=== PATIENT | male | born 1980 | race Caucasian/White ===

== ENCOUNTER 2021-05-19 00:09 | Emergency (ER) | payer OTHER, SELFPAY ==
--- NOTE | ~2021-05-19 | XR_ITS ---
EXAMINATION: XR CHEST CLINICAL INFORMATION: Shortness of breath with history of PTX COMPARISON: Single view chest 10/10/2019 TECHNIQUE: 2 views of the chest were obtained. FINDINGS: No significant abnormality is noted involving the heart, lungs, mediastinum, bony thorax or soft tissues. There is no pneumothorax detected. XR/XR chest 2V IMPRESSION: Unremarkable examination.
[2021-05-19 00:13] VITALS: BP 118/74; BP 120/50; PULSE 79; PULSE 82; RESP 16; TEMP 37.3; O2SAT 97; BMI 25.0
--- NOTE | 2021-05-19 00:23 | ECG_ITS ---
Test Reason : anxiety Blood Pressure : / mmHG Vent. Rate : 074 BPM Atrial Rate : 074 BPM P-R Int : 182 ms QRS Dur : 100 ms QT Int : 358 ms P-R-T Axes : 065 096 066 degrees QTc Int : 397 ms Normal sinus rhythm Rightward axis Borderline ECG When compared with ECG of 10-OCT-2019 01:36, No significant change was found Referred By: Sujata Jarrett Electronically Signed By:Calvin Roque
--- NOTE | 2021-05-19 00:30 | ED.SOB ---
HPI - SOB/Dyspnea General Chief Complaint: Anxiety Stated Complaint: Anxiety Time Seen by Provider: 05/19/21 00:16 Source: patient Mode of arrival: EMS History of Present Illness HPI Narrative: 41-year-old male with history of pneumothorax and asthma is brought in by EMS after his friend called due to acute onset of shortness of breath and left-sided chest discomfort that is worse with deep inspiration and reproducible in nature. Patient denies any fever, chills, but has had cough. Patient states he has consumed alcohol as well as smoked weed prior to arrival. Related Data Previous Rx's Medication Instructions Recorded prednisone 50 mg tablet 50 mg PO DAILY 4 Days #4 tab 05/19/21 Allergies Allergy/AdvReac Type Severity Reaction Status Date / Time acetaminophen [From TYLENOL] Allergy Severe SWELLING Unverified 12/01/19 15:09 shellfish derived Allergy Severe ANAPHYLAXIS Unverified 12/01/19 15:09 [SHELLFISH DERIVED] aspirin Allergy Unknown UNKNOWN Unverified 12/01/19 15:09 shellfish Allergy Unknown Uncoded 04/07/18 00:00 Review of Systems Review of Systems: Pertinent positives and negatives as stated in HPI 10 point review of systems is otherwise negative. [facility] Past Medical History Source: nursing notes reviewed Social History Social History Advance Directives: No Advance Directives Information Provided: No Physical Exam Vital Signs: Vital Signs: Last Vital Signs Temp 99.1 F 05/19/21 00:13 Pulse 80 05/19/21 01:10 Resp 18 05/19/21 01:10 BP 118/74 05/19/21 00:13 Pulse Ox 97 05/19/21 00:13 BMI result Body Mass Index 25.0 VITAL SIGNS: Reviewed. GENERAL: Poor hygiene, in mild distress, smells like alcohol HEAD: Normocephalic/atraumatic EYES: PERRLA, EOMI OROPHARYNX: no oral lesions noted, posterior pharynx clear LUNGS: Good air entry bilaterally but with noted discomfort, noted expiratory wheeze. SpO2<97> CARDIOVASCULAR: Regular rate and rhythm without noted murmurs, no JVD ABDOMEN: Soft, non-tender, non-distended with bowel sounds. MUSCULOSKELETAL: No tenderness, deformities, or effusions noted on gross inspection. EXTREMITIES: No cyanosis, clubbing or edema. SKIN: Inspection of the skin reveals no rashes, ulcerations, jaundice, pallor, or petechiae. NEUROLOGIC: Alert and oriented x 4. Strength and sensation to light touch were grossly intact x 4. Course Course Course Narrative: 41-year-old male with history and clinical presentation suggestive of possible but less likely pneumothorax after review of notes describe sclerosing treatments and the possibility pneumonia or asthma. Review of all investigations most consistent with mild asthma exacerbation without hypoxia, patient received hour long albuterol treatment as well as oral prednisone with significant improvement in symptoms. He was otherwise discharged home in stable condition. MDM - SOB/Dyspnea Lab Data Result diagrams: 05/19/21 01:08 05/19/21 01:08 Labs: Lab Results 05/19/21 05/19/21 Range/Units 01:08 01:08 WBC 6.3 (4.8-10.8) X10*3/uL RBC 4.74 (4.60-5.80) X10*6/uL Hgb 15.1 (14.0-18.0) g/dl Hct 44.6 (42.0-52.0) % MCV 94.1 (80.0-98.0) fL MCH 31.9 (27.0-33.0) pg MCHC 33.9 (31.0-36.0) g/dl RDW 13.6 (11.0-16.0) % Plt Count 222 (160-400) X10*3/uL MPV 8.6 L (9.4-12.4) fL Immature Gran % (Auto) 0.5 H (0.0-0.4) % Neut % (Auto) 45.2 (45-73) % Lymph % (Auto) 40.5 H (20-40) % [place] % (Auto) 9.0 (2-11) % Eos % (Auto) 4.2 H (0-4) % Baso % (Auto) 0.6 (0-2) % Lymph # (Auto) 2.5 (1.2-4.9) X10*3/uL [place] # (Auto) 0.6 (0.1-1.2) X10*3/uL Eos # (Auto) 0.3 (0.0-0.4) X10*3/uL Baso # (Auto) 0.0 (0.0-0.2) X10*3/uL Abs Immat Gran (auto) 0.03 (0.00-0.03) X10*3/uL Absolute Neuts (auto) 2.8 (2.0-8.3) x10*3/uL Absolute Nucleated RBC 0.000 (0.0-0.012) X10*3/uL Nucleated RBC % (auto) 0.0 (0.0-0.2) /100WBC Sodium 145 (135-145) mmol/L Potassium 3.9 (3.3-5.1) mmol/L Chloride 106 (96-108) mmol/L Carbon Dioxide 28 (22-29) mmol/L Anion Gap 15 (12-20) BUN 9 (9-16) mg/dL Creatinine 0.85 (0.5-1.4) mg/dL Estim Creat Clear Calc 129.2 Estimated GFR > 60 Random Glucose 88 (60-115) mg/dL Calcium 9.2 (8.4-10.2) mg/dL Total Bilirubin 0.2 (0.0-1.0) mg/dL AST 25 (5-37) U/L ALT 19 (0-40) U/L Alkaline Phosphatase 57 (39-117) U/L Total Protein 7.1 (6.5-8.0) g/dL Albumin 4.3 (3.5-5.0) g/dL ECG Data Attestation: I personally reviewed and interpreted this ECG as follows: Prior ECG tracings: available for review Interpretation: Normal sinus rhythm, HR-74, no STEMI, SC/QRS/QTC are within normal limits. Discharge Plan Discharge Clinical Impression: Asthma exacerbation Patient Disposition: Home, Self-Care Instructions: Asthma (ED) Additional Instructions: Follow-up with your primary care provider in the next 2-3 days. Return to the ER for worsening symptoms. Prescriptions: New prednisone 50 mg tablet 50 mg PO DAILY 4 Days Qty: 4 0RF
[2021-05-19 01:10] VITALS: PULSE 80; RESP 18; O2SAT 98
[2021-05-19] MEDS: Albuterol Sulfate (0.083%) 2.5 MG/3 ML VIAL.NEB 10 MG INHALE (01:10)
[2021-05-19 01:12] LABS: MANUAL DIFF FLAG NO
[2021-05-19 01:13] LABS: Basophils Percent Auto 0.6 % (0-2); Eosinophils Absolute Auto 0.3 X10*3/uL (0.0-0.4); Eosinophils Percent Auto 4.2 % (0-4); Hematocrit 44.6 % (42.0-52.0); Hemoglobin 15.1 g/dl (14.0-18.0); Imm Gran Abs Auto 0.03 X10*3/uL (0.00-0.03); Imm Gran Pct Auto 0.5 % (0.0-0.4); Lymphocytes Absolute Auto 2.5 X10*3/uL (1.2-4.9); Lymphocytes Percent Auto 40.5 % (20-40); Mean Corpuscular HGB Conc 33.9 g/dl (31.0-36.0); Mean Corpuscular Hemoglobin 31.9 pg (27.0-33.0); Mean Corpuscular Volume 94.1 fL (80.0-98.0); Mean Platelet Volume 8.6 fL (9.4-12.4); Monocytes Absolute Auto 0.6 X10*3/uL (0.1-1.2); Neutrophils Absolute Auto 2.8 x10*3/uL (2.0-8.3); Neutrophils Percent Auto 45.2 % (45-73); Platelet Count 222 X10*3/uL (160-400); Red Blood Count 4.74 X10*6/uL (4.60-5.80); Red Cell Distribution Width 13.6 % (11.0-16.0); White Blood Count 6.3 X10*3/uL (4.8-10.8)
[2021-05-19 01:28] LABS: Alanine Aminotransferase 19 U/L (0-40); Albumin Level 4.3 g/dL (3.5-5.0); Alkaline Phosphatase 57 U/L (39-117); Anion Gap 15 (12-20); Aspartate Amino Transferase 25 U/L (5-37); Bilirubin Total 0.2 mg/dL (0.0-1.0); Blood Urea Nitrogen 9 mg/dL (9-16); Calcium 9.2 mg/dL (8.4-10.2); Carbon Dioxide 28 mmol/L (22-29); Chloride 106 mmol/L (96-108); Creatinine Clr Calc Pharmacy 129.2; Estimated Glomerular Filt Rate > 60; Glucose Random 88 mg/dL (60-115); Potassium 3.9 mmol/L (3.3-5.1); Sodium 145 mmol/L (135-145); Total Protein 7.1 g/dL (6.5-8.0)
[2021-05-19] MEDS: predniSONE 10 MG TABLET 50 MG PO (01:44)
[2021-05-19 02:00] VITALS: BP 119/73; PULSE 92; RESP 14; TEMP 36.7; O2SAT 98
== END 2021-05-19 02:15 | disposition home or self-care (01) ==
PROVIDERS: Emergency Provider Student in an Organized Health Care Education/Training Program
DX: J45.901 Unspecified asthma with (acute) exacerbation (principal); F41.1 Generalized anxiety disorder; R06.02 Shortness of breath; R07.9 Chest pain, unspecified; Z79.899 Other long term (current) drug therapy
CPT/HCPCS: 36415; 71046; 80053; 85025; 93005; 94640; 94644; 99284

== ENCOUNTER 2021-10-18 02:17 | Emergency (ER) | payer OTHER, SELFPAY ==
--- NOTE | ~2021-10-18 | XR_ITS ---
EXAMINATION: XR CHEST CLINICAL INFORMATION: Back pain COMPARISON: 05/19/2021 TECHNIQUE: 2 views of the chest were obtained. FINDINGS: No significant abnormality is noted involving the heart, lungs, mediastinum, bony thorax or soft tissues. XR/XR chest 2V IMPRESSION: Unremarkable examination.
[2021-10-18 02:33] VITALS: BP 111/78; BP 146/90; PULSE 86; PULSE 88; RESP 16; TEMP 37.2; O2SAT 94; BMI 23.1
[2021-10-18 04:03] VITALS: BP 120/76; PULSE 84; RESP 17; TEMP 37.2; O2SAT 96
--- NOTE | 2021-10-18 04:20 | ECG_ITS ---
Test Reason : BACK PAIN Blood Pressure : / mmHG Vent. Rate : 077 BPM Atrial Rate : 077 BPM P-R Int : 178 ms QRS Dur : 102 ms QT Int : 384 ms P-R-T Axes : 078 099 066 degrees QTc Int : 434 ms Normal sinus rhythm Possible Left atrial enlargement Rightward axis Borderline ECG When compared with ECG of 19-MAY-2021 00:53, No significant change was found Referred By: Millicent El Electronically Signed By:CHARLES GODWIN MD
--- NOTE | 2021-10-18 04:21 | ED_ITS ---
HPI - Back Pain/Injury General Chief Complaint: Back Pain/Injury Stated Complaint: back pain Time Seen by Provider: 10/18/21 04:20 History of Present Illness HPI Narrative: 41-year-old male vaccinated for COVID positive history of smoking presents today with coughing pain in the back worse with coughing. Symptoms been ongoing for about 2 weeks. Patient denies any recent weight loss. Patient is from home. No history of diabetes, hypertension, mi. pain is worse with certain position. He was still able to play basketball. No nausea no vomiting. No diaphoresis. No shortness of breath associated with this pain Related Data Previous Rx's Medication Instructions Recorded prednisone 50 mg tablet 50 mg PO DAILY 4 days #4 tabs 05/19/21 azithromycin 250 mg tablet See Rx Instructions PO .COMPLEX 10/18/21 upper resp infection #6 tabs Allergies Allergy/AdvReac Type Severity Reaction Status Date / Time acetaminophen [From TYLENOL] Allergy Severe SWELLING Unverified 12/01/19 15:09 shellfish derived Allergy Severe ANAPHYLAXIS Unverified 12/01/19 15:09 [SHELLFISH DERIVED] aspirin Allergy Unknown UNKNOWN Unverified 12/01/19 15:09 shellfish Allergy Unknown Uncoded 04/07/18 00:00 Review of Systems Review of Systems: Positive back pain positive coughing upper respiratory symp toms No bowel urinary incontinence No focal weakness Yes all other systems are reviewed and are negative [facility] Past Medical History Attestation statement: The following information was validated with the patient. Surgical History H/O chest tube placement Social History Social History Advance Directives: No Advance Directives Information Provided: Yes Physical Exam Vital Signs: Vital Signs: Last Vital Signs Temp 98.9 F 10/18/21 04:03 Pulse 84 10/18/21 04:03 Resp 17 10/18/21 04:03 BP 120/76 10/18/21 04:03 Pulse Ox 96 10/18/21 04:03 O2 Del Method 10/18/21 04:03 BMI result Body Mass Index 23.1 Appearance: Alert. Oriented X3. No acute distress. Eyes: Pupils equal, round and reactive to light. ENT: Pharynx normal. Neck: Normal inspection. Neck supple. No lymph nodes noted. No crepitus CVS: Normal heart rate and rhythm. Pulses normal. Normal S1 and S2 Respiratory: No respiratory distress. Breath sounds normal. No Wheezing. No rales Abdomen: Soft and nontender. No rigidity. No distention. good BS x4 Skin: Skin warm and dry. Normal skin color. Normal skin turgor. Extremities: No lower extremity edema. Neurovascular intact to all extremities. No Lacerations. No Rash Neuro: Oriented X 3. No motor deficit. No sensory deficit. Moving all extermities. No slurred speech MDM - Back Pain/Injury MDM Narrative Medical decision making narrative: Patient's COVID test was negative. Chest x-ray negative for any acute evidence of pneumonia. Will start patient on a course of antibiotics for bronchitis. Currently in stable condition with discharge home. Medical Records Attestation: I reviewed the patient's medical records. Lab Data Attestation: I reviewed the patient's lab results. Labs: Lab Results 10/18/21 Range/Units 04:34 Influenza Type A (PCR) NEGATIVE (Negative) Influenza Type B (PCR) NEGATIVE (Negative) RSV RNA Qual (PCR) NEGATIVE (Negative) SARS-CoV-2 RNA (RT-PCR) NEGATIVE (Negative) Discharge Plan Discharge Clinical Impression: Bronchitis Patient Disposition: Home, Self-Care Instructions: Acute Bronchitis (ED) Prescriptions: New azithromycin 250 mg tablet See Rx Instructions .ROUTE .COMPLEX Qty: 6 0RF Rx Instructions: take 500 mg today (day 1), then 250 mg for 4 days (days 2-5) No Action prednisone 50 mg tablet 50 mg PO DAILY 4 Days Qty: 4 0RF Referrals: Physician,Nonstaff [Primary Care Provider] - [facility] [Provider Group]
[2021-10-18 05:16] LABS: Influenza A PCR NEGATIVE (Negative); Influenza B PCR NEGATIVE (Negative); Resp Syncy Virus RNA Qual PCR NEGATIVE (Negative); SARS COV2 PCR INHOUSE NEGATIVE (Negative)
== END 2021-10-18 06:38 | disposition home or self-care (01) ==
PROVIDERS: Emergency Provider Emergency Medicine Emergency Medical Services
DX: J20.9 Acute bronchitis, unspecified (principal); M54.50 Low back pain, unspecified; Z20.822 Contact with and (suspected) exposure to COVID-19; Z79.899 Other long term (current) drug therapy
CPT/HCPCS: 0241U; 71046; 93005; 99283; 99284

== ENCOUNTER 2022-01-09 23:00 | Emergency (ER) | payer OTHER, SELFPAY ==
[2022-01-09 23:05] VITALS: BP 136/81; PULSE 97; RESP 17; TEMP 36.7; O2SAT 98; BMI 25.0
--- NOTE | 2022-01-10 02:10 | ED_ITS ---
HPI - Dental/Oral General Chief complaint: Dental/Oral Stated complaint: tongue inj Time Seen by Provider: 01/10/22 02:00 Source: patient Mode of arrival: ambulatory Limitations: no limitations History of Present Illness HPI Narrative: Patient was playing basketball yesterday elbowed another player and got his tong ue in between the teeth got laceration to the lateral aspect of the tongue comes in for increased pain asking for antibiotic Related Data Previous Rx's Medication Instructions Recorded prednisone 50 mg tablet 50 mg PO DAILY 4 days #4 tabs 05/19/21 azithromycin 250 mg tablet See Rx Instructions PO .COMPLEX 10/18/21 upper resp infection #6 tabs Magic Mouthwash 10 ml PO Q6-8H PRN pain #240 mL 01/10/22 Diphen/Lido/Antacid 1:1:1 240 mL suspension amoxicillin 875 mg-potassium 1 tab PO BID #20 tabs 01/10/22 clavulanate 125 mg tablet Allergies Allergy/AdvReac Type Severity Reaction Status Date / Time acetaminophen [From TYLENOL] Allergy Severe SWELLING Verified 01/09/22 23:04 aspirin Allergy Unknown UNKNOWN Verified 01/09/22 23:04 shellfish derived Allergy Anaphylaxis Verified 01/09/22 23:05 Review of Systems Review of Systems: Yes all other systems are reviewed and are negative PMFSH Past Medical History Surgical History H/O chest tube placement Social History Social History Advance Directives: No Advance Directives Information Provided: No Physical Exam Vital Signs: Vital Signs: Last Vital Signs Temp 98.1 F 01/09/22 23:05 Pulse 97 01/09/22 23:05 Resp 17 01/09/22 23:05 BP 136/81 01/09/22 23:05 Pulse Ox 98 01/09/22 23:05 O2 Del Method 01/09/22 23:05 BMI result Body Mass Index 25.0 HEENT: Head: Yes normal to inspection, Yes No palpable skull fracture present, Yes normocephalic and Yes atraumatic Ears: hearing grossly normal bilaterally General nose exam: Normal external nose present Mouth: Normal oral and palatal mucosa present Mouth/tongue images: 1. Superficial laceration at left lateral margin Resp: Effort & Inspection: normal respiratory effort Auscultation: clear to auscultation bilaterally Cardio: Rate: regular rate Rhythm: regular rhythm GI: Inspection: Yes normal to inspection Discharge Plan Discharge Clinical Impression: Tongue laceration Patient Disposition: Home, Self-Care Instructions: Laceration (ED) Additional Instructions: use Orajel/Mouthwash as advised Antibiotics as prescribed Avoid hot liquids Prescriptions: New Magic Mouthwash Diphen/Lido/Antacid 1:1:1 240 mL suspension 10 ml PO Q6-8H PRN (Reason: pain) Qty: 240 0RF Rx Instructions: Lidocaine Viscous 2 % 80mL; diphenhydramine 12.5 mg/5 mL 80mL; aluminum-mag hydrox-simeth [id number]-[id number]/5mL 80mL amoxicillin-pot clavulanate 875-125 mg tablet 1 tab PO BID Qty: 20 0RF No Action azithromycin 250 mg tablet See Rx Instructions .ROUTE .COMPLEX Qty: 6 0RF Rx Instructions: take 500 mg today (day 1), then 250 mg for 4 days (days 2-5) prednisone 50 mg tablet 50 mg PO DAILY 4 Days Qty: 4 0RF Discharge Date/Time: 01/10/22 02:28
[2022-01-10] MEDS: Amoxicillin/Potassium Clav 875 MG TABLET PO (02:21)
[2022-01-10] MEDS: Lidocaine HCl Viscous 2 % 15 ML SOLUTION MUCOUS MEM (02:27)
== END 2022-01-10 02:28 | disposition home or self-care (01) ==
PROVIDERS: Emergency Provider Internal Medicine
DX: S01.512A Laceration without foreign body of oral cavity, initial encounter (principal); W01.0XXA Fall on same level from slipping, tripping and stumbling without subsequent striking against object, initial encounter; Y93.67 Activity, basketball; Y92.310 Basketball court as the place of occurrence of the external cause; Y99.9 Unspecified external cause status; Z79.899 Other long term (current) drug therapy
CPT/HCPCS: 99281; 99283

== ENCOUNTER 2022-01-21 15:51 | Emergency (ER) | payer OTHER, SELFPAY ==
--- NOTE | ~2022-01-21 | CT_ITS ---
EXAMINATION: HEAD CT WITHOUT CONTRAST CERVICAL SPINE CT WITHOUT CONTRAST CLINICAL INFORMATION: Head injury. Pain in the back of the head. COMPARISON: None. TECHNIQUE: Contiguous axial imaging of the head was performed without the administration of IV contrast. Axial multidetector volumetric images were also performed through the cervical spine without intravenous contrast. Multiplanar reconstructed images in coronal and sagittal orientations were submitted. This CT examination was performed using dose optimization techniques as appropriate, variously including the following: *Automated exposure control *Adjustment of mA and/or kV according to patient size (this includes techniques or standardized protocols for targeted exams where dose is matched to indication/reason for exam; i.e. extremities or head) *Use of iterative reconstruction technique DOSE: 1223 mGy-cm FINDINGS: HEAD: There is no evidence of acute intracranial hemorrhage or territorial infarction. No abnormal mass-effect or midline shift. No extra-axial fluid collections. Peck to white matter differentiation is well preserved. The ventricles are normal in size and configuration. There is no abnormal attenuation within the brain parenchyma. Linear hyperdense and soft tissues right posterolateral calvarium overlying the region of the lambdoid suture likely corresponds to a hematoma. Small laceration is possible. There is a thin underlying subgaleal hematoma measuring 5 mm in thickness. Additional small foci of soft tissue swelling are evident over the left frontal bone anteriorly and anterolaterally. The calvarium is intact. Mastoid air cells are clear. The left maxillary sinus is completely opacified with medial bowing of the medial wall of the left maxillary sinus as well as chronic appearing mucoperiosteal thickening and paralabral dense bands in the internal soft tissue, raising the possibility of chronic sinusitis. CERVICAL SPINE: Vertebral body heights are normal. No fractures of the vertebral bodies or posterior elements. Mild anterolisthesis of C2 on C3 (3 mm) is likely related to the severe facet arthropathy at this level bilaterally. Vertebral alignment is otherwise normal. No acute subluxation. Degenerative osteophytes and sclerosis are present at the atlantodental articulation, though normal alignment is maintained. Craniocervical junction is normal. There is mild loss of vertebral disc at a few levels, most notably C2-C3 and C7-T1. Tiny endplate osteophytes are evident at multiple levels. Severe facet arthropathy is evident at C2-C3 bilaterally and produces moderate bilateral neural foraminal encroachment. Neural foramina otherwise appear patent by CT. No appreciable central canal stenoses. No significant paravertebral soft tissue swelling. Cervical soft tissues are unremarkable. Minimal pleural parenchymal scarring at the lung apices. CT/CT cervical spine wo IV con IMPRESSION: 1. No acute intracranial pathology. Soft tissue contusions over the right posterolateral calvarium and left anterolateral frontal bone with possible small laceration and a small subgaleal hematoma over the right posterior calvarium near the lambdoid suture. No fractures. No underlying fracture. 2. No acute fracture or malalignment in the cervical spine. 3. Chronic left maxillary sinus disease. Consider ENT referral on a nonemergent basis as there is mild medial bowing at the medial wall of the left maxillary sinus, raising the possibility of ostiomeatal obstruction. 4. Severe facet arthropathy at C2-C3 with mild anterolisthesis of C2 on C3 and moderate bilateral neural foraminal encroachment.
[2022-01-21 16:43] VITALS: BP 111/71; PULSE 72; RESP 20; TEMP 36.4; O2SAT 99; BMI 25.0
== END 2022-01-22 00:12 | disposition left against medical advice (07) ==
LOC: HO.ED 01-22 00:10
PROVIDERS: Emergency Provider Emergency Medicine
DX: S09.90XA Unspecified injury of head, initial encounter (principal); S00.83XA Contusion of other part of head, initial encounter; Y00.XXXA Assault by blunt object, initial encounter; Y93.9 Activity, unspecified; Y92.9 Unspecified place or not applicable; Y99.9 Unspecified external cause status
CPT/HCPCS: 70450; 72125; 99281; 99284

== ENCOUNTER 2022-09-12 13:05 | Outpatient (REF) | payer OTHER, SELFPAY ==
--- NOTE | ~2022-09-12 | XR_ITS ---
EXAMINATION: XR CHEST CLINICAL INFORMATION: Weight loss back pain COMPARISON: 10/18/2021 TECHNIQUE: 2 views of the chest were obtained. FINDINGS: There is no gross pneumothorax. Mild left apical pleural thickening. Heart size is normal.. No pleural effusion. No focal consolidation to suggest pneumonia. Mild degenerative changes in the thoracic spine. XR/XR chest 2V IMPRESSION: No evidence of pneumonia.
[2022-09-12 13:21] LABS: MANUAL DIFF FLAG NO
[2022-09-12 14:26] LABS: Basophils Absolute Auto 0.1 X10*3/uL (0.0-0.2); Basophils Percent Auto 0.7 % (0-2); Eosinophils Absolute Auto 0.1 X10*3/uL (0.0-0.4); Eosinophils Percent Auto 1.2 % (0-4); Hematocrit 45.8 % (42.0-52.0); Hemoglobin 15.7 g/dl (14.0-18.0); Imm Gran Abs Auto 0.08 X10*3/uL (0.00-0.03); Imm Gran Pct Auto 0.9 % (0.0-0.4); Lymphocytes Absolute Auto 2.4 X10*3/uL (1.2-4.9); Lymphocytes Percent Auto 26.8 % (20-40); Mean Corpuscular HGB Conc 34.3 g/dl (31.0-36.0); Mean Corpuscular Hemoglobin 32.6 pg (27.0-33.0); Mean Corpuscular Volume 95.2 fL (80.0-98.0); Monocytes Absolute Auto 1.1 X10*3/uL (0.1-1.2); Monocytes Percent Auto 12.8 % (2-11); Neutrophils Absolute Auto 5.1 x10*3/uL (2.0-8.3); Neutrophils Percent Auto 57.6 % (45-73); Platelet Count 151 X10*3/uL (160-400); Red Blood Count 4.81 X10*6/uL (4.60-5.80); Red Cell Distribution Width 13.6 % (11.0-16.0); White Blood Count 8.9 X10*3/uL (4.8-10.8)
[2022-09-12 14:29] LABS: Appearance Urine Clear; Color Urine Yellow; Glucose Urine UA Negative (Negative); Leukocyte Esterase Urine Negative (Negative); Nitrite Urine Negative (Negative); PH 5.5 (5.0-9.0); Specific Gravity - Urine <= 1.005 (1.005-1.025); Urine Blood Negative (Negative); Urine Ketones Negative (Negative); Urine Protein Negative (Neg-Trace)
[2022-09-12 15:10] LABS: Alanine Aminotransferase 49 U/L (0-40); Albumin Level 4.6 g/dL (3.5-5.0); Alkaline Phosphatase 53 U/L (39-117); Anion Gap 15 (12-20); Aspartate Amino Transferase 56 U/L (5-37); Blood Urea Nitrogen 6 mg/dL (9-16); C Reactive Protein 0.18 mg/dL (< or = 0.50); Calcium 10.1 mg/dL (8.4-10.2); Carbon Dioxide 26 mmol/L (22-29); Chloride 104 mmol/L (96-108); Cholesterol 233 mg/dL; Estimated Glomerular Filt Rate > 60; Glucose Random 80 mg/dL (60-115); Potassium 3.5 mmol/L (3.3-5.1); Sodium 141 mmol/L (135-145); Total Protein 8.1 g/dL (6.5-8.0)
== END 2022-09-12 13:06 | disposition home or self-care (01) ==
LOC: HO.LAB 13:05
PROVIDERS: PCP Internal Medicine; Visit Provider Internal Medicine
DX: M54.9 Dorsalgia, unspecified (principal); R63.4 Abnormal weight loss
CPT/HCPCS: 36415; 71046; 80053; 81003; 82465; 85025; 86140; 87086

== ENCOUNTER 2024-09-23 20:52 | Emergency (ER) | payer OTHER, SELFPAY ==
[2024-09-23 21:22] VITALS: BP 94/58; PULSE 91; RESP 16; TEMP 36.8; O2SAT 95; BMI 24.6
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
== END 2024-09-23 23:21 | disposition left against medical advice (07) ==
PROVIDERS: Emergency Provider Emergency Medicine
DX: R21 Rash and other nonspecific skin eruption (principal)
CPT/HCPCS: 99281; 99284